=== PATIENT | female | born 1985 | race Caucasian/White ===

== ENCOUNTER 2017-05-28 19:03 | Emergency (ER) | payer MEDICAID, OTHER ==
[2017-05-28 19:39] VITALS: BP 111/67; PULSE 78; TEMP 97.8; O2SAT 99
[2017-05-28] MEDS ORDERED: Apap-Butalbital-Caffeine 325-50-40mg Tab PO STA (20:07)
--- NOTE | 2017-05-28 20:16 | C.PDOC ---
History Of Present Illness 32yo female, presents to ED with complaints of frontal headache, radiating to her right periorbital area, present intermittently for the past 2 weeks. She states she has been taking Tylenol intermittently for her pain with no relief. She states now she has pain to her right shoulder and upper back area. She denies any trauma, or history of chronic headaches. Patient states she presented today because even though her headache has not been worsening, it has not improved either. She has no other medical complaints. Time Seen by Provider: 05/28/17 19:49 Chief Complaint (Nursing): Headache History Per: Patient History/Exam Limitations: no limitations Onset/Duration Of Symptoms: Intermittent Episodes, Persistent Current Symptoms Are (Timing): Still Present Quality: "Pain" Preceeding Symptoms: None Associated Symptoms: denies: Photophobia, Blurred Vision, Nausea Past Medical History Reviewed: Historical Data, Nursing Documentation, Vital Signs Vital Signs: Last Vital Signs Temp 97.8 F 05/28/17 19:38 Pulse 78 05/28/17 19:38 Resp 18 05/28/17 19:38 BP 111/67 05/28/17 19:38 Pulse Ox 99 05/28/17 20:24 - Medical History PMH: Asthma Surgical History: Cholecystectomy Family History: States: Unknown Family Hx - Social History Hx Tobacco Use: No Hx Alcohol Use: No Hx Substance Use: No - Immunization History Hx Tetanus Toxoid Vaccination: No Hx Influenza Vaccination: No Hx Pneumococcal Vaccination: No Review Of Systems Eyes: Negative for: Vision Change Gastrointestinal: Negative for: Nausea Musculoskeletal: Positive for: Shoulder Pain (right ), Back Pain (right upper back) Neurological: Positive for: Headache Physical Exam - Physical Exam Appears: Non-toxic Skin: Warm, Dry Head: Atraumatic, Normacephalic Eye(s): bilateral: Normal Inspection Neck: Supple Back: Normal Inspection, No Vertebral Tenderness, No Paraspinal Tenderness Extremity: Normal ROM (rt shoulder), No Tenderness Neurological/Psych: Oriented x3, Normal Motor (right upper extremity), Normal Sensation (right upper extremity) Gait: Steady ED Course And Treatment O2 Sat by Pulse Oximetry: 99 (RA) Pulse Ox Interpretation: Normal Reevaluation Time: 20:36 Reassessment Condition: Improved (Pt reports improvement and is requesting to leave) Medical Decision Making Medical Decision Making: Plan: -- Flexeril 10 mg PO -- Motrin 600 mg PO -- Fioricet 2 tab PO Disposition - Disposition Disposition: HOME/ ROUTINE Disposition Time: 20:37 Condition: STABLE Additional Instructions: Increase PO fluids Take meds as directed Return to ER if worse Prescriptions: Cyclobenzaprine [Cyclobenzaprine HCl] 10 mg PO HS #10 tab Ibuprofen [Motrin] 600 mg PO Q6H #20 tab Instructions: Acute Headache (ED), Musculoskeletal Pain (ED) Forms: [employer] (Nepali) Print Language: ARABIC - Clinical Impression Clinical Impression: Headache, Musculoskeletal pain
[2017-05-28 20:57] VITALS: RESP 20
== END 2017-05-28 20:56 | disposition home or self-care (01) ==
LOC: C.ER 19:03
DX: M79.1 Myalgia (principal); R51 Headache